=== PATIENT | male | born 1955 | race Caucasian/White ===

== ENCOUNTER → 2017-03-20 | Outpatient (CLI) | payer OTHER ==
[~2017-03-20] MED LIST: ADULT LOW DOSE81 MG PO; ASPIR 8181 M1 PO; ASPIR 8181 MG PO; ATORVASTATIN CA20 MG PO; BRILINTA90 MG PO; COZAAR 25 MG TA25 M1 PO; CRESTOR10 MG PO; EFFIENT10 MG PO; GLUCOPHAGE850 MG PO; GLUCOSAMINE HC500 MG PO; GLUCOTROL5 MG PO; HYDROCHLOROTHIA25 M2 PO; IMDUR 30 MG TAB30 M1 PO; LEXAPRO 10 MG T10 MG PO; LIPITOR80 MG PO; LISINOPRIL5 MG PO; LOPRESSOR25 PO; MOBIC15 MG PO; NITROGLYCERIN0.4 MG SUBLING; NORVASC10 MG PO; POTASSIUM GLUCO90 MG PO; SINGULAIR 10 MG10 M1 PO; TURMERIC500 M2 PO; VITAMIN D2000 UNIT PO
== END ==
LOC: M.LAB 08:30 → M.CT 09:30
PROVIDERS: Internal Medicine Gastroenterology
DX: N28.1 Cyst of kidney, acquired (principal); K40.20 Bilateral inguinal hernia, without obstruction or gangrene, not specified as recurrent; K76.0 Fatty (change of) liver, not elsewhere classified; I70.0 Atherosclerosis of aorta; M25.78 Osteophyte, vertebrae; M48.00 Spinal stenosis, site unspecified

== ENCOUNTER → 2017-08-27 | Outpatient (CLI) | payer OTHER | LOC: M.MRI 06:52 → M.LAB 07:30 → M.MRI 07:30 | DX: M51.9 Unspecified thoracic, thoracolumbar and lumbosacral intervertebral disc disorder (principal); M47.817 Spondylosis without myelopathy or radiculopathy, lumbosacral region; M54.16 Radiculopathy, lumbar region; M48.07 Spinal stenosis, lumbosacral region ==

== ENCOUNTER 2017-12-25 11:03 | Emergency (ER) | payer OTHER ==
[~2017-12-25] VITALS: Ht 180.3 cm; Wt 88.9 kg
[~2017-12-25 11:03] MED LIST changes: -ASPIR 8181 MG PO; -GLUCOPHAGE850 MG PO; -GLUCOTROL5 MG PO; -HYDROCHLOROTHIA25 M2 PO; -LIPITOR80 MG PO; -NORVASC10 MG PO; -POTASSIUM GLUCO90 MG PO; -SINGULAIR 10 MG10 M1 PO; -TURMERIC500 M2 PO
[2017-12-25] MEDS ORDERED: NORVASC10 MG PO (11:20)
[2017-12-25] MEDS ORDERED: HYDROCHLOROTHIA25 M2 PO (11:20)
[2017-12-25] MEDS ORDERED: ASPIR 8181 MG PO (11:21)
[2017-12-25] MEDS ORDERED: EFFIENT10 MG PO (11:21)
[2017-12-25] MEDS ORDERED: MOBIC15 MG PO (11:21)
[2017-12-25] MEDS ORDERED: SINGULAIR 10 MG10 M1 PO ×2 (11:21)
[2017-12-25] MEDS ORDERED: LIPITOR80 MG PO (11:21)
[2017-12-25] MEDS ORDERED: POTASSIUM GLUCO90 MG PO (11:23)
[2017-12-25] MEDS ORDERED: TURMERIC500 M2 PO (11:24)
[2017-12-25 11:25] LABS: URINE BILIRUBIN NEGATIVE (Negative); URINE BLOOD NEGATIVE (Negative); URINE CLARITY CLEAR; URINE COLOR YELLOW; URINE GLUCOSE-RANDOM 3+ (Negative); URINE KETONES TRACE (Negative); URINE LEUKOCYTES-REFLEX NEGATIVE (Negative); URINE NITRITE-REFLEX NEGATIVE (Negative); URINE PROTEIN NEGATIVE (Negative); URINE SPECIFIC GRAVITY 1.015 (1.005-1.030); URINE UROBILINOGEN 0.2 E.U./dl (0.2-1.0)
[2017-12-25 11:27] LABS: ABSOLUTE BASOPHILS 0.1 thou/uL (0.0-0.2); ABSOLUTE EOSINOPHILS 0.2 thou/uL (0.0-0.7); ABSOLUTE LYMPHOCYTES 1.5 thou/uL (0.8-5.3); ABSOLUTE MONOCYTES 0.4 thou/uL (0.0-1.2); BASOPHILS 1.4 %; EOSINOPHILS 3.5 %; HEMATOCRIT 38.8 % (42.0-52.0); HEMOGLOBIN 13.3 gm/dL (14.0-18.0); LYMPHOCYTES 24.3 %; MCH 30.1 pg (26.0-34.0); MCHC 34.2 g/dL (28.0-37.0); MONOCYTES 5.9 %; MPV 8.3 fl. (7.2-11.1); NUCLEATED RBCS 0 /100WBC; PLATELET COUNT* 231 thou/uL (150-400); POLYS 64.9 %; WBC 6.2 thou/uL (4.0-11.0)
[2017-12-25 11:37] LABS: PROTIME 10.2 Seconds (9.20-11.50)
[2017-12-25 12:01] LABS: CALCIUM 9.4 mg/dL (8.5-10.1); CREATININE 1.1 mg/dL (0.6-1.3); POTASSIUM 4.4 mmol/L (3.5-5.1)
[2017-12-25 12:06] LABS: ALBUMIN 3.8 g/dL (3.4-5.0); TOTAL BILIRUBIN 0.6 mg/dL (<0.1-1.0); TOTAL PROTEIN 7.3 g/dL (6.4-8.2)
[2017-12-25] MEDS ORDERED: GLUCOTROL5 MG PO (12:25)
[2017-12-25] MEDS ORDERED: GLUCOPHAGE850 MG PO (12:25)
[2017-12-25 12:44] VITALS: BP 90/69
== END 2017-12-25 12:44 | disposition home or self-care (01) ==
LOC: M.ERS 11:03
PROVIDERS: Family Medicine
DX: E11.65 Type 2 diabetes mellitus with hyperglycemia (principal); I10 Essential (primary) hypertension; I25.10 Atherosclerotic heart disease of native coronary artery without angina pectoris; M19.90 Unspecified osteoarthritis, unspecified site; Z95.5 Presence of coronary angioplasty implant and graft; Z88.0 Allergy status to penicillin

== ENCOUNTER → 2017-12-25 | Outpatient (CLI) | payer OTHER ==
[2017-12-25 09:36] LABS: ABSOLUTE BASOPHILS 0.1 thou/uL (0.0-0.2); ABSOLUTE EOSINOPHILS 0.2 thou/uL (0.0-0.7); ABSOLUTE LYMPHOCYTES 1.4 thou/uL (0.8-5.3); ABSOLUTE MONOCYTES 0.3 thou/uL (0.0-1.2); ABSOLUTE NEUTROPHILS 3.3 thou/uL (1.6-8.1); BASOPHILS 1.7 %; EOSINOPHILS 4.5 %; HEMATOCRIT 40.3 % (42.0-52.0); HEMOGLOBIN 13.7 gm/dL (14.0-18.0); LYMPHOCYTES 25.7 %; MCH 30.2 pg (26.0-34.0); MCV 88.8 fL (80.0-100.0); MONOCYTES 5.4 %; MPV 8.7 fl. (7.2-11.1); NUCLEATED RBCS 0 /100WBC; PLATELET COUNT* 250 thou/uL (150-400); POLYS 62.7 %; RBC 4.53 mil/uL (4.50-6.00); RDW-CV 12.9 % (10.5-14.5); WBC 5.3 thou/uL (4.0-11.0)
[2017-12-25 09:41] LABS: CALCIUM 9.6 mg/dL (8.5-10.1); CREATININE 1.1 mg/dL (0.6-1.3); POTASSIUM 4.5 mmol/L (3.5-5.1)
== END ==
LOC: M.LAB 09:16
PROVIDERS: Internal Medicine Cardiovascular Disease
DX: R25.2 Cramp and spasm (principal); R53.83 Other fatigue; I10 Essential (primary) hypertension; I25.10 Atherosclerotic heart disease of native coronary artery without angina pectoris

== ENCOUNTER → 2018-01-22 | Outpatient (CLI) | payer OTHER ==
[~2018-01-22] MED LIST changes: +ASPIR 8181 MG PO; +GLUCOPHAGE850 MG PO; +GLUCOTROL5 MG PO; +HYDROCHLOROTHIA25 M2 PO; +LIPITOR80 MG PO; +NORVASC10 MG PO; +POTASSIUM GLUCO90 MG PO; +SINGULAIR 10 MG10 M1 PO; +TURMERIC500 M2 PO
[2018-01-22 09:26] LABS: PROTIME 9.9 Seconds (9.20-11.50)
[2018-01-22 19:12] LABS: IgG 797 mg/dL (700-1600); IgM 65 mg/dL (20-172)
[2018-01-22 23:07] LABS: HEPATITIS B SURFACE AG Negative (Negative)
[2018-01-25 11:10] LABS: ANTI-DNA SCREEN 1 IU/mL (0-9); ANTI-RNP <0.2 AI (0.0-0.9)
== END ==
LOC: M.ULTRA 07:36
PROVIDERS: Internal Medicine Gastroenterology
DX: R94.5 Abnormal results of liver function studies (principal); I10 Essential (primary) hypertension; I25.10 Atherosclerotic heart disease of native coronary artery without angina pectoris; Z88.0 Allergy status to penicillin; Z72.89 Other problems related to lifestyle

== ENCOUNTER → 2018-02-05 | Outpatient (CLI) | payer OTHER ==
[2018-02-05 09:05] LABS: CHOLESTEROL 123 mg/dL (<200); HDL CHOLESTEROL 51 mg/dL (>40); LDL CHOLESTEROL 57 mg/dL (<100); TC:HDL 2.4 Ratio (Not establshd); TRIGLYCERIDE 78 mg/dL (<150); VLDL 16 mg/dL (<40)
[2018-02-05 09:11] LABS: SERUM ASSESSMENT Clear
== END ==
LOC: M.LAB 08:40
PROVIDERS: Internal Medicine Cardiovascular Disease
DX: E78.2 Mixed hyperlipidemia (principal)

== ENCOUNTER 2019-09-27 19:10 | Observation (INO) | payer OTHER ==
[~2019-09-27] VITALS: Ht 180.3 cm; Wt 93.4 kg
[2019-09-27 19:16] VITALS: BP 160/81
[2019-09-27] MEDS ORDERED: OZEMPIC0.25 MG/0. SUBQ (19:22)
[2019-09-27 19:36] LABS: ABSOLUTE BASOPHILS 0.1 thou/uL (0.0-0.2); ABSOLUTE EOSINOPHILS 0.2 thou/uL (0.0-0.7); ABSOLUTE MONOCYTES 0.4 thou/uL (0.0-1.2); ABSOLUTE NEUTROPHILS 6.1 thou/uL (1.6-8.1); BASOPHILS 0.8 %; EOSINOPHILS 1.7 %; HEMATOCRIT 43.6 % (42.0-52.0); HEMOGLOBIN 14.8 gm/dL (14.0-18.0); LYMPHOCYTES 22.8 %; MCH 30.4 pg (26.0-34.0); MCHC 33.8 g/dL (28.0-37.0); MCV 89.9 fL (80.0-100.0); MONOCYTES 4.5 %; MPV 8.5 fl. (7.2-11.1); NUCLEATED RBCS 0 /100WBC; PLATELET COUNT* 260 thou/uL (150-400); POLYS 70.2 %; RBC 4.85 mil/uL (4.50-6.00); RDW-CV 13.2 % (10.5-14.5); WBC 8.8 thou/uL (4.0-11.0)
[2019-09-27 19:48] LABS: CALCIUM 8.5 mg/dL (8.5-10.1); CREATININE 1.1 mg/dL (0.6-1.3); POTASSIUM 4.2 mmol/L (3.5-5.1)
[2019-09-27 19:52] LABS: PROTIME 10.6 Seconds (9.20-11.50)
[2019-09-27] MEDS ORDERED: METFORMIN HCL500 M3 PO (19:55)
[2019-09-27] MEDS ORDERED: JARDIANCE25 MG PO (19:56)
[2019-09-27] MEDS ORDERED: PLAVIX 75 MG TA75 MG PO (19:57)
[2019-09-27] MEDS ORDERED: CARVEDILOL12.5 MG PO (19:58)
[2019-09-27 19:59] LABS: ALBUMIN 3.7 g/dL (3.4-5.0); MAGNESIUM 1.9 mg/dL (1.8-2.4); TOTAL BILIRUBIN 0.4 mg/dL (<0.1-1.0); TOTAL PROTEIN 7.1 g/dL (6.4-8.2)
[2019-09-27] MEDS ORDERED: SINGULAIR 10 MG10 MG PO (19:59)
[2019-09-27] MEDS ORDERED: NEURONTIN 300M300 M2 PO (20:00)
[2019-09-27 20:15] LABS: URINE BILIRUBIN NEGATIVE (Negative); URINE BLOOD NEGATIVE (Negative); URINE CLARITY CLEAR; URINE COLOR YELLOW; URINE GLUCOSE-RANDOM 3+ (Negative); URINE KETONES NEGATIVE (Negative); URINE LEUKOCYTES-REFLEX NEGATIVE (Negative); URINE NITRITE-REFLEX NEGATIVE (Negative); URINE PROTEIN NEGATIVE (Negative); URINE SPECIFIC GRAVITY 1.015 (1.005-1.030); URINE UROBILINOGEN 0.2 E.U./dl (0.2-1.0)
[2019-09-27 22:00] VITALS: BP 140/80
[2019-09-27] MEDS ORDERED: VALSARTAN40 MG PO (22:34)
[2019-09-27] MEDS ORDERED: MELOXICAM7.5 MG PO (22:35)
[2019-09-28] VITALS (14 sets, daily range): BP systolic 105–154; BP diastolic 53–79
--- NOTE | 2019-09-28 05:24 | NUR ---
PT RECIEVED FROM ED IN ROOM 201. ALERT AND ORIENTED X4. TROPONIN ELEVATED, INFORMED PHYSICIAN, ORDERS RECIEVED AND IMPLENTED. DENIES SOB. PT ON O2. CALL LIGHT WITHIN REACH AND BED IN LOW POSITION. HOURLY ROUNDING DONE FOR PT SAFETY.
[2019-09-28 05:26] LABS: CHOLESTEROL 111 mg/dL (<200); HDL CHOLESTEROL 40 mg/dL (>40); LDL CHOLESTEROL 58 mg/dL (<100); TC:HDL 2.8 Ratio (Not establshd); TRIGLYCERIDE 67 mg/dL (<150); VLDL 13 mg/dL (<40)
[2019-09-28 05:28] LABS: SERUM ASSESSMENT Clear
--- NOTE | 2019-09-28 11:20 | EKG ---
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[facility] : 1955 Requested By: Caitie Madera Order Number: [id number] MD: Jamaal Jackson Measurements Intervals [place] Rate: 53 P: 31 TN: 152 QRS: 18 QRSD: 84 T: 31 QT: 417 QTc: 392 Interpretive Statements Sinus bradycardia Abnormal R-wave progression, early transition Baseline wander in lead(s) V6 Compared to ECG 07/22/2016 04:09:51 rate has slowed Electronically Signed On 09-28-2019 11:20:24 CDT by Jamaal Jackson [email or web address] <ELECTRONICALLY SIGNED> By: Jamaal Jackson MD, [facility] 09/28/19 1120 16 16 Jamaal Jackson MD, [facility] /EPI
--- NOTE | 2019-09-28 15:05 | EKG ---
[place] [address] ELECTROCARDIOGRAM REPORT Name: THUAN RAMIRES [address]#: [id number] Admission: 09/27/19 Attend Phys: Braulio Amador Discharge: Date of : 57 Date of Service: 09/28/19 1423 Report #: [id number] THIS REPORT FOR: //name// 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[facility] : 1955 Requested By: Jamaal Jackson Order Number: [id number] Allegra MD: Jamaal Jackson Measurements Intervals [place] Rate: 54 P: 40 NH: 148 QRS: 3 QRSD: 82 T: 16 QT: 424 QTc: 402 Interpretive Statements Sinus bradycardia Abnormal R-wave progression, early transition Compared to ECG 09/27/2019 19:17:05 no change Electronically Signed On 09-28-2019 15:05:17 CDT by Jamaal Jackson [email or web address] <ELECTRONICALLY SIGNED> By: Jamaal Jackson MD, [facility] 09/28/19 1505 1423 1423 Jamaal Jackson MD, [facility] /EPI
--- NOTE | 2019-09-28 15:15 | CARD ---
[address] [address] CARDIAC CATH REPORT Name: THUAN RAMIRES Radha Room: [address] MKajal#: [id number] Admission: 09/27/19 Attend Phys: Milagros Chandler Discharge: Date of : 57 Report #: [id number] THIS REPORT FOR: //name// cc: Jose العلي John E. DO ~ APPROVED REPORT Study performed: 09/28/2019 12:07:19 Patient Details Patient Status: In-Patient Room #: The patient is a 63 year-old male Event Personnel Jamaal Jackson Personal Security Specialist, Erinn Page RN RN, Trish Lao RN RN, Tristan Saab SEPTIC TANK SERVICE TECHNICIAN Scrub, Mariel Garcia RTR Monitor Procedures Performed Art Access - R radial artery Left Heart Cath w/or w/o Coronaries PRATIBHA Place w/wo Plasty Single RCA Hemostasis with Hemoband Indication Unstable angina , Chest pain Risk Factors Arterial Hypertension, Hypercholesterolemia, Coronary Artery Disease, Diabetes Previous Procedures/Diagnoses Previous PCI Admission/Lab Medications/Medications given during procedure Heparin Unfract., Fentanyl IV 25 mcg, Midazolam (Versed) IV 2 mg, Lidocaine Subcut 5 ml, Nitroglycerin IA 200 mcg, Verapamil IA 2.5 mg, Heparin IV 4700 units, Heparin IV 4000 units, Heparin IV 1000 units, Nitroglycerin IA 200 mcg, and Verapamil IA 2.5 mg Procedure Narrative The patient was brought electively to the Cardiac Catheterization Laboratory and was prepped and draped in a sterile manner. The right wrist was infiltrated with 2% Lidocaine subcutaneous anesthesia. A Slender Glidesheath sheath was inserted into the right radial artery. Coronary angiography was performed [place] [address] CARDIAC CATH REPORT Name: THUAN RAMIRES Room: [address]#: [id number] Admission: 09/27/19 Attend Phys: Milagros Chandler Discharge: Date of : 57 Report #: [id number] catheters. The right coronary system was accessed and visualized with a Diagnostic 6 Fr JR 4 catheter. The left coronary system was accessed and visualized with a Diagnostic 6 Fr JL 4 catheter. The left ventricle was accessed and visualized with a Diagnostic 6 Fr Pigtail catheter. Left ventricular/Aortic Valve gradient assessed via catheter pullback. Left ventriculogram was performed in BOUDREAUX projection. Closure device was deployed with a 6 Fr Vasc band Regular. The patient tolerated the procedure well and there were no complications associated with the procedure. There was no hematoma. Intraoperative Conscious Sedation Sedation start time: 13:06 Case end Time: 13:41 Fentanyl 25 mcg Versed 2 mg Fluoro Time: 4.9 minutes Dose: DAP 35727 cGycm2 937 mGy Contrast Type and Amount: Omnipaque 210 ml Coronary Angiography The patient's coronary anatomy is right dominant. Diagnostic Cath Left Main 0% stenosis LAD proximal stent with 0% stenosis. 30% stenosis of the apical lad Circumflex 0% stenosis Right Coronary 30% proximal stenosis and 99% mid stenosis Ramus large vessel with proximal stent that had 0% stenosis Left Ventriculography The left ventricular ejection fraction is estimated to be 45-50%. Left ventricular wall motion abnormalities are present. There is no mitral insufficiency. mild anterolateral wall hypokinesis Hemodynamics The aortic pressure is 156/101 mmHg with a mean of 125 mmHg. The left ventricular pressure is 156/25 mmHg with a mean of mmHg. The left ventricular end diastolic pressure is 25 mmHg. There was no gradient across the aortic valve upon pullback. Pullback from the left ventricle to the aorta revealed no gradient [place] [address] CARDIAC CATH REPORT Name: THUAN RAMIRES Room: [address]Lokesh#: [id number] Admission: 09/27/19 Attend Phys: Milagros Chandler Discharge: Date of : 57 Report #: [id number] PCI Technique Lesion Anticoagulation was achieved with Heparin. Patient was preloaded with Plavix. Percutaneous coronary intervention was performed on the mid right coronary artery. The lesion stenosis prior to intervention was 99% with LISSETH 3 flow. A 6FR JCR 4 100CM Guide Catheter was used to engage the right ostium. A IG: BMW 190cm Interventional Guidewire was used to cross the lesion. BALLOON DILATION A Balloon catheter Euphora SC 2.5x10 was inserted and inflated up to 18.00atm for 14seconds. Repeat angiography revealed the following post-dilatation results: 30% stenosis. STENT DEPLOYMENT A drug-eluting stent Centennial RX Stent 3.0X15mm was inserted and inflated up to 12.00atm for 16seconds. Repeat angiography revealed the following post-stent deployment results: 0% stenosis. Additional Inflation: 14.00atm for 14seconds. Final angiography reveals 0 % stenosis with LISSETH 3 flow. Conclusion 1. no restenosis of stents noted in the proximal lad and ramus artery. 2. 99% stenosis of the mid rca 3. LVEF 45-50% 4. successful placement of a drug eluting stent in the mid rca Recommendations Cardiac Rehabilitation Referral Aggressive Medical Therapy <ELECTRONICALLY SIGNED> By: Jamaal Jackson MD, [facility] 09/28/19 1515 1515 1515Dack Jackson MD, FAC /INF
--- NOTE | 2019-09-28 15:18 | CON ---
[address] [address] CONSULTATION Name: THUAN RAMIRES Room: [address] Rosanna Díaz#: [id number] Admission: 09/27/19 Attend Phys: Milagros Chandler Discharge: Date of : 57 Report #: [id number] THIS REPORT FOR: //name// cc: Jose العلي John E. DO ~ THIS REPORT FOR: //name// CC: Jose Amador DATE OF SERVICE: 09/28/2019 CARDIOLOGY CONSULTATION HISTORY OF PRESENT ILLNESS: The patient is a 63-year-old white male who I was asked to see in the hospital today after he complained of chest pain. The patient has an extensive past medical history. He apparently presented in 2014 with chest pain. He had 3 coronary artery stents placed here at [place]. Apparently a week later, he had 2 additional stents placed. He did well until 2018, he was vacationing in [facility] and had an episode of chest pain. He had repeat cardiac catheterization and was found to have in-stent restenosis and had a stent placed within a stent. He has done well since that time. He actually saw Dr. Magdaleno a month ago. He has not had a recent stress test. He stays fairly active. He does, however, for the past week, has had intermittent discomfort in his chest, lasted a few seconds when he exerts himself. However, last night, he was at home when he felt a pressure in his chest. There was radiation to his jaw. He took a nitroglycerin, this seemed to help. He denied diaphoresis, fever, cough, blood in stool. His drove him to the Emergency Room last night. When he was at x-ray had episode of chest discomfort and was given another nitroglycerin which seemed to help. He has done well since that time. I was asked to see him for further evaluation and treatment. He denies exertional dyspnea, palpitation, syncope, medical noncompliance, peripheral edema. PAST MEDICAL HISTORY: He has had previous back surgery, carpal tunnel surgery, kidney stone removal, shoulder surgery, hypertension, hyperlipidemia. MEDICATIONS: Include aspirin, Lipitor, carvedilol, Plavix, Jardiance, Neurontin, Mobic, metformin, Ozempic, Diovan. ALLERGIES: HE IS INTOLERANT TO PENICILLIN AND JENNIFER INHIBITORS, WHICH MADE HIM COUGH. FAMILY HISTORY: [place] [address] CONSULTATION Name: THUAN RAMIRES Room: [address] Bre#: [id number] Admission: 09/27/19 Attend Phys: Milagros Chandler Discharge: Date of : 57 Report #: [id number] SOCIAL HISTORY: He is . He and his live in [place]. 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 No history of smoking or alcohol abuse. REVIEW OF SYSTEMS: He has had no history of stroke, asthma, liver disease. He has had a kidney stone in the past. No cancer. No psychiatric illness. No chronic skin condition. PHYSICAL EXAMINATION: GENERAL: Revealed a middle-aged male, appeared in no distress. VITAL SIGNS: He had a blood pressure of 130/70, pulse 60. He is afebrile. HEENT: He was anicteric. Conjunctivae pink. Mucous membranes moist. NECK: Veins nondistended. No carotid bruits. CHEST: Clear to auscultation. CARDIOVASCULAR: Regular rate and rhythm. ABDOMEN: Soft. EXTREMITIES: Had no edema. Posterior pulse 2+ bilaterally. SKIN: Cool and dry. NEUROLOGIC: Nonfocal. LYMPH: No adenopathy. MUSCULOSKELETAL: No joint effusion. RADIOLOGICAL DATA: His ECG showed sinus bradycardia. There were no ST or T-wave changes noted. His workup in the Emergency Room last night, he had portable chest x-ray that showed normal heart size and clear lung umanzor. He had CT scan of the abdomen performed with contrast that showed no acute abnormality. Renal cysts, enlarged prostate. He had an abdominal ultrasound performed that showed fatty liver, renal cyst. He had previous carotid Doppler study performed by Dr. Magdaleno that showed only a mild plaque formation. LABORATORY WORK: In the Emergency Room last night; sodium 140, potassium 4.2, creatinine 1.1, glucose is 215. Lipase was 555. GGTP 395. His troponin is 0.06 on admission, it is now 0.12. His white blood cell count 8.8, hemoglobin 14.8. IMPRESSION AND RECOMMENDATIONS: 1. Unstable angina. Recommend repeat cardiac catheterization. 2. Hypertension. The patient is on a beta guicho and ARB. 3. Hyperlipidemia. The patient is on a statin drug. 4. Diabetes. 5. History of kidney stones. <ELECTRONICALLY SIGNED> By: Jamaal Jackson MD, [facility] 09/28/19 1518 1150 1302Dmartina Jackson MD, [facility] /nt
--- NOTE | 2019-09-28 19:54 | NUR ---
PT HAD CATH THROUGH RIGHT RADIAL THIS AFTERNOON WITHOUT ISSUES POST. SITE HAS HAD ALL PRESSURE REMOVED WITH BRACELET STILL IN PLACE. VSS ON RA. PT HAS HAD NO C/O PAIN. SITE TO RIGHT RADIAL CDI. PT HAS BEEN TOLD THAT HE CAN BE DCD AT 1000 AM.
[2019-09-29] VITALS: BP 123/61
[2019-09-29 04:00] VITALS: BP 133/61
[2019-09-29 04:39] LABS: ABSOLUTE BASOPHILS 0.1 thou/uL (0.0-0.2); ABSOLUTE EOSINOPHILS 0.1 thou/uL (0.0-0.7); ABSOLUTE LYMPHOCYTES 1.5 thou/uL (0.8-5.3); ABSOLUTE MONOCYTES 0.4 thou/uL (0.0-1.2); ABSOLUTE NEUTROPHILS 5.1 thou/uL (1.6-8.1); BASOPHILS 0.8 %; EOSINOPHILS 1.5 %; HEMATOCRIT 42.6 % (42.0-52.0); HEMOGLOBIN 14.5 gm/dL (14.0-18.0); LYMPHOCYTES 20.9 %; MCH 30.3 pg (26.0-34.0); MCV 89.2 fL (80.0-100.0); MONOCYTES 6.2 %; MPV 8.7 fl. (7.2-11.1); NUCLEATED RBCS 0 /100WBC; PLATELET COUNT* 230 thou/uL (150-400); POLYS 70.6 %; RBC 4.77 mil/uL (4.50-6.00); WBC 7.2 thou/uL (4.0-11.0)
[2019-09-29 05:25] LABS: CALCIUM 8.2 mg/dL (8.5-10.1); CREATININE 0.8 mg/dL (0.6-1.3); POTASSIUM 4.2 mmol/L (3.5-5.1); TROPONIN-I LEVEL 0.23 ng/mL (<0.06)
--- NOTE | 2019-09-29 05:46 | NUR ---
PT CARE ASSUMED AT 1930. SAT MAINTAINED IN RA. ALERT AND ORIENTED X4. DENIES PAIN AND SOB. CATH SITE C/D/I. CALL LIGHT WITHIN RECH AND BED IN LOW POSITION. HOURLY ROUNDING DONE FOR PT SAFETY.
[2019-09-29 07:55] VITALS: BP 96/55
[2019-09-29] MEDS ORDERED: EFFIENT10 MG PO (09:49)
--- NOTE | 2019-09-29 09:51 | NUR ---
RECEIVED REPORT. ASSUMED CARE OF PT AROUND 729. PT A&O X4. SCOURING PADS SUPERVISOR IN PLACE TRACING SA TO SB. AM ASSESSMENT AND VITALS COMPLETED CHARTED. MEDS PER EMAR. PT TO GO HOME TODAY PER CARDIOLOGY. NEW SCRIPT CALLED IN TO PHARMACY. PATIENT AND FAMILY MEMEMBER UPDATED OF DISCHARGE PLAN. PT UP AD VERONICA TO BATHROOM. RIGHT RADIAL CATH SITE CDI, SENSATION INTACT. PT CURRENTLY WAITING FOR HOSPITALIST TO SIGN OFF. LOW FALL RISK PRECAUTIONS IN PLACE. CALL LIGHT IS WITHIN REACH. HOURLY ROUNDING PERFORMED. WCTM.
[2019-09-29 10:28] VITALS: BP 154/79
--- NOTE | 2019-09-29 11:33 | NUR ---
DISCHARGE ORDERS RECEIVED. DISCHARGE COMPLETED DOCUMENTED. DISCHARGE SUMMARY AND CARE NOTES GONE OVER WITH PT AND , BOTH COMMUNICATE UNDERSTANDING. SCRIPT CALLED IN TO PHARMACY. PT GIVEN APPIONTMENT CARD. IV AND ASSISTANT MERCHANDISER REMOVED. ALL BELONGINGS GATHERED AND LEAVING WITH PT. PT LEFT UNIT WALKING WITH NURSING STAFF. PT LEFT HOSPITAL IN CAR WITH .
--- NOTE | 2019-09-29 12:43 | EKG ---
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1955 Requested By: Jamaal Jackson Order Number: [id number] Allegra MD: Jose Roach Measurements Intervals [place] Rate: 53 P: 38 MN: 156 QRS: -3 QRSD: 84 T: 13 QT: 423 QTc: 398 Interpretive Statements Sinus rhythm Abnormal R-wave progression, early transition Missing lead(s): V3 Compared to ECG 09/28/2019 14:23:42 Sinus bradycardia no longer present Electronically Signed On 09-29-2019 12:43:42 CDT by Jose Roach [email or web address] <ELECTRONICALLY SIGNED> By: Jose Roach MD, [facility] 09/29/19 1243 0616 Jose Roach MD, [facility] /EPI
== END 2019-09-29 11:30 | disposition home or self-care (01) ==
LOC: M.ERS 19:10 → M.TBA-ER 20:29 → M.2W 20:29
PROVIDERS: Emergency Medicine; Internal Medicine; ADMIT Internal Medicine; ATTEND Internal Medicine
DX: Z03.818 Encounter for observation for suspected exposure to other biological agents ruled out (principal); I21.4 Non-ST elevation (NSTEMI) myocardial infarction; I25.10 Atherosclerotic heart disease of native coronary artery without angina pectoris; M19.90 Unspecified osteoarthritis, unspecified site